=== PATIENT | female | born 1995 | race Caucasian/White ===

== ENCOUNTER → 2020-06-26 | Outpatient (CLI) | payer OTHER ==
--- NOTE | 2020-06-26 15:43 | RADIOLOGY REPORT (SQ) ---
EXAM DESCRIPTION: U/S RETROPERITON (RENAL/AORTA) IMAGES COMPLETED DATE/TIME: 06/26/2020 3:11 pm REASON FOR STUDY: M54.5 LOW BACK PAIN, HEMETURIA M54.5 LOW BACK PAIN COMPARISON: None. TECHNIQUE: Dynamic and static grayscale images acquired of the kidneys and bladder and recorded on P ACS. Additional selected color Doppler and spectral images recorded. LIMITATIONS: None. FINDINGS: RIGHT KIDNEY: Normal size. Normal echogenicity. No solid or suspicious masses. No hydrone phrosis. No calcifications. LEFT KIDNEY: Normal size. Normal echogenicity. No solid or suspicious masses. Mild dilatation of th e renal pelvis within normal limits for 22 weeks gestation. No calcifications. BLADDER: No masses. OTHER FINDINGS: Intrauterine with heart rate 168. IMPRESSION: No stones or hydronephrosis. COMMENT: The degree of renal pelvocalyceal dilation is correlated with the patient's current stage o f . TECHNICAL DOCUMENTATION: JOB ID: [id number] 2010 [employer]- All Rights Reserved Reading location - IP/workstation name: [email or web address]
== END ==
LOC: RAD 14:46
PROVIDERS: ATTEND Advanced Practice Midwife
DX: O99.89 Other specified diseases and conditions complicating pregnancy, childbirth and the puerperium (principal); R31.9 Hematuria, unspecified; M54.5 Low back pain; Z3A.22 22 weeks gestation of pregnancy
CPT/HCPCS: 76770

== ENCOUNTER 2020-10-20 21:59 | Inpatient (IN) | payer OTHER ==
[2020-10-20] MEDS ORDERED: OXYTOCIN 10 UNIT/ML VIAL ONE (22:56)
[2020-10-20] MEDS ORDERED: LIDOCAINE 1% INJ-PF (10 MG/ML) 30 ML SDV ONE (22:56)
[2020-10-20] MEDS ORDERED: OXYTOCIN/0.9 % SODIUM CHLORIDE 30 UNIT/500 ML RTUINJ ONE (22:56)
[2020-10-20] MEDS ORDERED: MISOPROSTOL 0.2 MG TABLET ONE (22:56)
[2020-10-20 23:57] LABS: ABSOLUTE EOSINOPHILS # (AUTO) 0.1 10^3/uL (0.0-0.6); ABSOLUTE LYMPHOCYTES (AUTO) 2.4 10^3/uL (0.5-4.7); ABSOLUTE MONOCYTES (AUTO) 0.8 10^3/uL (0.1-1.4); BASOPHILS % (AUTO) 0.2 % (0-2); EOSINOPHILS % (AUTO) 0.7 % (0-6); HEMATOCRIT 26.9 % (36.0-47.0); HEMOGLOBIN 8.8 g/dL (12.0-15.5); LYMPHOCYTES % (AUTO) 23.8 % (13-45); MEAN CORPUSCULAR HEMOGLOBIN 24.3 pg (27.0-33.4); MEAN CORPUSCULAR HGB CONC 32.5 g/dL (32.0-36.0); MEAN CORPUSCULAR VOLUME 75 fl (80-97); MONOCYTES % (AUTO) 7.3 % (3-13); PLATELET COUNT 125 10^3/uL (150-450); RED BLOOD COUNT 3.61 10^6/uL (3.72-5.28); RED CELL DISTRIBUTION WIDTH 16.4 % (11.5-14.0); TOTAL CELLS COUNTED % (AUTO) 100 %; WHITE BLOOD COUNT 10.3 10^3/uL (4.0-10.5)
[2020-10-20] MEDS ORDERED: RINGERS SOLUTION,LACTATED 500 ML IV ONE (23:59)
[2020-10-20] MEDS ORDERED: RINGERS SOLUTION,LACTATED 1,000 ML IV ONE (23:59)
[2020-10-21 00:03] LABS: APPEARANCE,URINE TURBID; BILIRUBIN,URINE NEGATIVE (NEGATIVE); COLOR,URINE YELLOW; GLUCOSE, URINE NEGATIVE (NEGATIVE); KETONES,URINE NEGATIVE (NEGATIVE); LEUKOCYTE ESTERASE,URINE NEGATIVE (NEGATIVE); NITRITE,URINE NEGATIVE (NEGATIVE); PROTEIN,URINE 100 mg/dL (NEGATIVE); URINE SPECIFIC GRAVITY 1.013; UROBILINOGEN,URINE NEGATIVE mg/dL (<2.0)
[2020-10-21] MEDS ORDERED: EPHEDRINE SULFATE INJ 50 MG/1 ML AMPULE ONE (00:28)
[2020-10-21 00:29] LABS: URINE BARBITURATES SCREEN NEGATIVE; URINE BENZODIAZEPINES SCREEN NEGATIVE; URINE COCAINE SCREEN NEGATIVE; URINE MARIJUANA (THC) SCREEN NEGATIVE; URINE METHADONE SCREEN NEGATIVE; URINE PHENCYCLIDINE SCREEN NEGATIVE
[2020-10-21] MEDS ORDERED: ROPIVACAINE HCL 0.2% INJ/PF (2 MG/ML) 20 ML SDV ONE (00:29)
[2020-10-21] MEDS ORDERED: FENTANYL/BUPIVACAINE/NS/PF 300 MCG/150 ML RTUINJ EPI ONE (00:29)
[2020-10-21] MEDS ORDERED: OXYTOCIN/0.9 % SODIUM CHLORIDE 30 UNIT/500 ML RTUINJ ONE (04:32)
--- NOTE | 2020-10-21 04:41 | Admission Physical ---
Datetime Report Generated by CPN: 10/21/2020 04:41 CURRENT ADMISSION Chief Complaint: Uterine Contractions Indication for Induction: Not Applicable Admit Impression : Term, Intrauterine ; Active Labor; Ruptured Membranes Admit Plan: Admit to Unit; Initiate Labor Protocol ALLERGIES Medication Allergies: No Medication Allergies: No Known Allergies (10/20/2020) Latex: No Latex Allergies Food Allergies: none Environmental Allergies: none OBSTETRICAL HISTORY EDC: 10/25/2020 00:00 : 3 Para: 0 Term: 0 : 0 SAB: 1 IAB: 1 Ectopic: 0 Livin Cesareans: 0 VBACs: 0 Multiple Births: 0 Gestational Diabetes: No Rh Sensitization: No Incompetent Cervix: No MAURO: No Infertility: No ART Treatment: No Uterine Anomaly: No IUGR: No Hx Previous C/S: No Macrosomia: No Hx Loss/Stillborn: No PIH: No Hx : No Placenta Previa/Abruption: No Depression/PP Depression: No PTL/PROM: No Post Hemorrhage: No Current Procedures: Ultrasound Obstetrical History Comments: 02/2013 G3- Current SEE RECORDS Alcohol: No Marijuana : No Cocaine: No Other Illicit Drugs: No Cigarettes: Never Smoker. [id number] MEDICAL HISTORY Diabetes: No Blood Transfusion: No Pulmonary Disease (Asthma, TB): No Breast Disease: No Hypertension: No 4 H Youth Development Specialist Surgery: No Heart Disease: No Hosp/Surgery: Yes Autoimmune Disorder: No Anesthetic Complications: No Kidney Disease: Yes Abnormal Pap Smear: No Neuro/Epilepsy: No Psychiatric Disorders: No Other Medical Diseases: No Hepatitis/Liver Disease: No Significant Family History: No Varicosities/Phlebitis: No Trauma/Violence : No Thyroid Dysfunction: No Medical History Comments: anemia /r/o kidney stones, root canal in 08/2020 INFECTIOUS HISTORY Gonorrhea: No Genital Herpes: No Chlamydia: No Tuberculosis: No Syphilis: No Hepatitis: No HIV/AIDS Exposure: No Rash or Viral Illness: No HPV: No PHYSICAL EXAM General: Normal HEENT: Normal Neurologic: Normal Thyroid: Deferred Heart: Normal Lungs: Normal Breast: Deferred Back: Normal Abdomen: Normal Genitourinary Exam: Normal Extremities: Normal DTRs: Normal Pelvic Type: Adequate Vital Signs: Reviewed VAGINAL EXAM Dilatation: 3 Effacement: 90 Station: -2 Contraction Comments: q 2-3 MEMBRANES Membranes: Ruptured Amniotic Fluid Color: Clear (Annotations: Data stored by [facility] on behalf of user) FETUS A EGA: 39.3 Monitoring: External US FHR- Baseline: 145 Variability: Moderate 6-25bpm Accelerations: 15X15 Decelerations: None FHR Category: Category I Presentation: Vertex Admit Comment: 25yo at 39+3ega presents for SROM clear fluid at 2145. She also is reporting increasingly more frequent contractions. c/b anemia, failed 1 hr GTT (passed 3 hr GTT). Platlets on admission c/w gestational thrombocytopenia. GBS negative. Anemia on admission also 05/22. will likely need iron infusion pp. Admit and anticipate . PLANS FOR LABOR AND DELIVERY Labor and Delivery: None Pain Management: Epidural Feeding Preference: Breast Benefit of Breast Feed Discussed: Yes Circumcision: N/A INFORMED CONSENT Informed Consent Obtained: Vaginal Delivery; Risks, Benefits and Alternatives Discussed Signature: with User ID: [email or web address]
[2020-10-21] MEDS ORDERED: GLYCERIN/WITCH HAZEL LEAF 1 EACH MED..WIPE TP PRN (04:47)
[2020-10-21] MEDS ORDERED: DIPH/PERTUSS(ACELL)/TETANUS VAC/PF 0.5 ML SYR (>=10YO) IM PRN (04:47)
[2020-10-21] MEDS ORDERED: ACETAMINOPHEN 650 MG SUPP.RECT PR PRN (04:47)
[2020-10-21] MEDS ORDERED: ACETAMINOPHEN 325 MG TABLET PO PRN (04:47)
[2020-10-21] MEDS ORDERED: MAGNESIUM HYDROXIDE SUSP 30 ML UDCUP PO PRN (04:47)
[2020-10-21] MEDS ORDERED: BENZOCAINE/MENTHOL AEROSOL SPRAY 56 ML TOP PRN (04:47)
[2020-10-21] MEDS ORDERED: VARICELLA VACC/PF (1350 UNIT/0.5 ML) 0.5 ML VIAL SUBCUT PRN (04:47)
[2020-10-21] MEDS ORDERED: MEASLES,MUMPS&RUBELLA VACC/PF 0.5 ML VIAL SUBCUT PRN (04:47)
[2020-10-21] MEDS ORDERED: ZOLPIDEM TARTRATE 5 MG TABLET PO PRN (04:47)
[2020-10-21] MEDS ORDERED: DIPHENHYDRAMINE HCL 25 MG CAPSULE PO PRN (04:47)
[2020-10-21] MEDS ORDERED: DIBUCAINE 1% OINTMENT 28 GM TP PRN (04:47)
[2020-10-21] MEDS ORDERED: FAMOTIDINE 20 MG TABLET PO PRN (04:47)
[2020-10-21] MEDS ORDERED: OXYTOCIN/0.9 % SODIUM CHLORIDE 30 UNIT/500 ML RTUINJ IV PRN (04:47)
[2020-10-21] MEDS ORDERED: ACETAMINOPHEN WITH CODEINE #3 TABLET PO PRN ×2 (04:47)
[2020-10-21] MEDS ORDERED: PSEUDOEPHEDRINE HCL 30 MG TABLET PO PRN (04:47)
[2020-10-21] MEDS ORDERED: MAG HYDROX/AL HYDROX/SIMETH SUSP 30 ML UDCUP PO PRN (04:47)
[2020-10-21] MEDS ORDERED: MISOPROSTOL 0.1 MG TABLET PR ONE (04:48)
--- NOTE | 2020-10-21 06:01 | Delivery Summary ---
Del Sum A-C Datetime Report Generated by CPN: 10/21/2020 06:00 DELIVERY PERSONNEL DELIVERY PERSONNEL: [id number] Delivery Doctor:: Janae Gonzalez MD DIRECTOR OF BUSINESS SYSTEMS:: Rafat Salter CRNA Labor and Delivery Nurse:: Lacho Wesley RNgolf cart repairer Nurse:: RUFINO Bueno Nursery Nurse:: Telma Herrera RN Keeler Polygraph Operator/VOCATIONAL REHABILITATION SPECIALIST: Mercedes Mccall, ST MATERNAL INFORMATION Delivery Anesthesia: Epidural Medications After Delivery: Pitocin 30 Units in 500ml NS/D5W; Cytotec 1000mcg Per Rectum/Vagina Estimated Blood Loss (ml): 600 Maternal Complications: None Provider Comments: VFI delivered in BRIAN presentation. No nuchal cord. Shoulders and body delivered without difficulty. Infant to maternal abdomen for NRP and skin to skin. Delayed cord clamping performed then cord doubly clamped and cut. Placenta delivered intact spontaneously and then FF at U but only after pitocin and Cytotec. Right labial laceration and 1st degree midline laceration repaired. Good hemostasis. Mother and baby stable upon provider leaving the room. LABOR SUMMARY EDC: 10/25/2020 00:00 No. Babies in Womb: 1 Attempted: No Labor Anesthesia: Epidural LABOR INFORMATION Reason for Induction: Not Applicable Onset of Labor: 10/20/2020 23:29 Complete Dilatation: 10/21/2020 03:55 Oxytocin: N/A Group B Beta Strep: neg Antibiotics # of Doses: 0 Name of Antibiotic Given: n/a Steroids Given: None Reason Steroids Not Administered: Not Applicable MEMBRANES Membranes Rupture Method: Spontaneous Rupture of Membranes: 10/20/2020 21:45 Length of Rupture (hr): 6.43 Amniotic Fluid Color: Clear Amniotic Fluid Amount: Small Amniotic Fluid Odor: Normal STAGES OF LABOR Stage 1 hr: 4 Stage 1 min: 26 Stage 2 hr: 0 Stage 2 min: 16 Stage 3 hr: 0 Stage 3 min: 4 Total Time in Labor hr: 4 Total Time in Labor min: 46 VAGINAL DELIVERY Episiotomy: None Laceration #1: Perineal Laceration Extension #1: First Degree Laceration #2: Vaginal Laceration Extension #2: N/A Laceration Repair: Yes Laceration Repair Note: 1st degree ML perineal laceration and Right labial laceration repaired. Sponge Count Correct: Yes Sharps Count Correct: Yes CSECTION DELIVERY Primary Indication: N/A Secondary Indication: N/A CSection Incidence: N/A Labor: N/A Elective: N/A CSection Incision: N/A BABY A INFORMATION Infant Delivery Date/Time: 10/21/2020 04:11 Method of Delivery: Vaginal Nurse Controlled Delivery: No Born in Route : No : N/A Forceps: N/A Vacuum Extraction: N/A Shoulder Dystocia : No PRESENTATION/POSITION BABY A Presentation: Cephalic Cephalic Presentation: Vertex Vertex Position: Right Occipital Anterior Breech Presentation: N/A PLACENTA INFORMATION BABY A Placenta Delivery Time : 10/21/2020 04:15 Placenta Method of Delivery: Spontaneous Placenta Status: Delivered SCORES BABY A Heart Rate 1 min: >100 bpm Resp Effort 1 min: Good Cry Reflex Irritability 1 min: Cough or Sneeze or Pulls Away Muscle Tone 1 min: Active Motion Color 1 min: Body [place], Extremities Blue Resuscitation Effort 1 min: Tactile Stimulation SCORE 1 MIN: 9 Heart Rate 5 min: >100 bpm Resp Effort 5 min: Good Cry Reflex Irritability 5 min: Cough or Sneeze or Pulls Away Muscle Tone 5 min: Active Motion Color 5 min: Body [place], Extremities Blue SCORE 5 MIN: 9 INFANT INFORMATION BABY A Gestational Age at Delivery: 39.3 Gestational Status: Full Term- 39- 40.6 Weeks Infant Outcome : Liveborn Condition : Stable Sex: Female IDENTIFICATION BABY A Verification Date/Time: 10/21/2020 04:35 ID Band Number: [id number] Mother's Name Verified: Yes Infant RN Verifying Infant: Charlotte Brar, RN/ S. Horacio, RN WEIGHT/LENGTH BABY A Infant Birthweight (gm): 3220 Infant Weight (lb): 7 Weight (oz): 2 Infant Length (in): 21.00 Infant Length (cm): 53.34 CORD INFORMATION BABY A No. Cord Vessels: 3 Nuchal Cord : N/A Cord Blood Taken: Yes-For Eval (Mom's Blood Type - or O+) Infant Suction: None ASSESSMENT BABY A Infant Complications: None Physical Findings at Delivery: Within Normal Limits Infant Respirations: Appears Normal Skin to Skin: Yes Skin to Skin Time (min): 60 Commercial Credit Analyst/ALS Called : No Infant Care By: D Bellavance RN Transferred To: Remains with Mother BABY B INFORMATION : N/A SIGNATURES Signature: with User ID: [email or web address]
--- NOTE | 2020-10-21 06:01 | Birth Certificate Data ---
Cert Data Datetime Report Generated by CPN: 10/21/2020 06:00 CERTIFICATE DATA Delivery Provider: Janae Gonzalez MD (10/20/2020 22:07:RUFINO Bueno) 47a. Care: Yes (10/20/2020 22:07:RUFINO Bueno) 47b. Date of First Visit: 04/12/2020 00:00 (10/20/2020 22:07:RUFINO Bueno) 47c. Date of Last Visit: 10/16/2020 00:00 (10/20/2020 22:07:RUFINO Bueno) 47d. Number of Visits: 13 (10/20/2020 22:07:RUFINO Bueno) 48a. Number of Prev Live Births: 0 (10/20/2020 22:07:RUFINO Bueno) 48b. Now Livin (10/20/2020 22:07:RUFINO Bueno) 48c. Live Births Now : 0 (10/20/2020 22:07:QS system process) 48e. Losses: 2 (10/20/2020 22:07:Lacho Wesley RN) 48f. Date of Last Preg Loss: 01/15/2020 00:00 (10/20/2020 22:07:RUFINO Bueno) RISK FACTORS IN THIS 49a. Diabetes: No (10/20/2020 22:07:Lacho Wesley RN) 49b. Hypertension: No (10/20/2020 22:07:Lacho Wesley RN) 49c. Previous Births: 0 (10/20/2020 22:07:RUFINO Bueno) 49d. Stillborns: No (10/20/2020 22:07:Lacho Wesley RN) 49d. IUGR: No (10/20/2020 22:07:Lacho Wesley RN) 49e. Infertility Treatment: No (10/20/2020 22:07:Lacho Wesley RN) 49f. Previous Cesareans: 0 (10/20/2020 22:07:RUFINO Bueno) Mother's Height 50b. Height Inches: 62 (10/20/2020 22:18:QS system process) Mother's Weight 51a. Pre- Weight (lbs): 154 (10/20/2020 22:07:RUFINO Bueno) 51b. Weight at Delivery (lbs): 172 (10/20/2020 22:18:QS system process) 52. Dt Last Normal Menses Began: 01/19/2020 00:00 (10/20/2020 22:07:RUFINO Bueno) Infections Present/Treated 53a. Gonorrhea: No (10/20/2020 22:07:Lacho eWsley RN) Results this Hospital Visit : Negative (10/20/2020 22:07:RUFINO Bueno) 53b. Syphilis: No (10/20/2020 22:07:Lacho Wesley RN) 53c. Chlamydia: No (10/20/2020 22:07:Lacho Wesley RN) Results this Hospital Visit: Negative (10/20/2020 22:07:RUFINO Bueno) 53d. Hepatitis B: No (10/20/2020 22:07:Lacho Wesley RN) Results this Hospital Visit: Negative (10/20/2020 22:07:RUFINO Bueno) 53e. Hepatitis C: Negative (10/20/2020 22:07:RUFINO Bueno) 53h. Mother Tested for HBsAG: Yes (10/20/2020 22:07:RUFINO Bueno) 53i. Date Tested: 04/12/2020 00:00 (10/20/2020 22:07:RUFINO Bueno) 53j. Test Result: Negative (10/20/2020 22:07:RUFINO Bueno) Obstetric Procedures 54a, b, c. Obstetric Procedures: Ultrasound (10/20/2020 22:07:Lacho Wesley RN) Cigarette Smoking Cigarette Smoking: Never Smoker. [id number] (10/20/2020 22:07:Lacho Wesley RN) 55a. 3 Months Before Preg - Ci (10/20/2020 22:07:Lacho Wesley RN) 55a. Packs: 0 (10/20/2020 22:07:Lacho Wesley RN) 55b. 1st Trimester of Preg- Ci (10/20/2020 22:07:Lacho Wesley RN) 55b. Packs: 0 (10/20/2020 22:07:Lacho Wesley RN) 55c. 2nd Trimester of Preg- Ci (10/20/2020 22:07:Lacho Wesley RN) 55c. Packs: 0 (10/20/2020 22:07:Lacho Wesley RN) 55d. 3rd Trimester of Preg- Ci (10/20/2020 22:07:Lacho Wesley RN) 55d. Packs: 0 (10/20/2020 22:07:Lacho Wesley RN) Onset of Labor 56a. PROM >12 Hrs: 6.43 (10/20/2020 23:15:QS system process) 56b. Precipitous Labor <3 Hrs: 4 (10/20/2020 22:07:QS system process) 56c. Prolonged Labor > 20 Hrs: 4 (10/20/2020 22:07:QS system process) 57a. Induction of Labor: N/A (10/20/2020 22:07:RUFINO Bueno) 57c. Non-Vertex Presentation A: Vertex (10/20/2020 22:07:RUFINO Bueno) 57d. Steroids - Lung Mat: None (10/20/2020 22:07:RUFINO Bueno) 57d. Steroids - Lung Mat: Not Applicable (10/20/2020 22:07:RUFINO Bueno) 57f. Mat [place] or Temp >100.4: 98.6 (10/20/2020 22:07:RUFINO Bueno) 57g. Moderate/Heavy Meconium: Clear (10/20/2020 23:15:Lacho Wesley RN) 57h. Intolerance of Labor: N/A (10/20/2020 22:07:RUFINO Bueno) : N/A (10/20/2020 22:07:Lacho Wesley RN) 57i. Epidural/Spinal Anesthesia: Epidural (10/20/2020 22:07:RUFINO Bueno) Method of Delivery 58a. Forceps - Unsuccessful A: N/A (10/20/2020 22:07:Katia Bellavance, RNC) 58b. Vacuum - Unsuccessful A: N/A (10/20/2020 22:07:Katia Bellavance, RNC) 58c. Presentation at 58c. Presentation at - A : Vertex (10/20/2020 22:07:Katia Bellavance, RNC) 58c. Presentation at - A : N/A (10/20/2020 22:07:Katia Bellavance, RNC) 58c. Presentation at - A : Cephalic (10/20/2020 22:07:Katia Bellavance, RNC) Final Route and Method of Del 58d. Baby A Route/Delivery: Vaginal (10/21/2020 04:11:Katia Bellavance, RNC) 58e. Trial of Labor Attempted: No (10/20/2020 22:07:Katia Bellavance, RNC) 58e. Trial of Labor Attempted A: N/A (10/20/2020 22:07:Katia Bellavance, RNC) 58e. Trial of Labor Attempted B: N/A (10/20/2020 22:07:Katia Bellavance, RNC) Maternal Morbidity 59b. 3rd or 4th Degree Lacs: Perineal (10/20/2020 22:07:Katia Bellavance, RNC) Birthweight Baby A: 3220 (10/20/2020 22:07:Lacho Wesley RN) 60a. Pounds : 7 (10/20/2020 22:07:QS system process) 60b. Ounces: 2 (10/20/2020 22:07:QS system process) 61. GA at Delivery Baby A: 39.3 (10/20/2020 22:07:Katia Bellavance, RNC) : Full Term- 39- 40.6 Weeks (10/20/2020 22:07:QS system process) 62a. 5 Minute Baby A: 9 (10/20/2020 22:07:QS system process)
[2020-10-21] MEDS: IBUPROFEN 800 MG TABLET PO SCH ×3 (06:35→22:27)
[2020-10-21 08:58] LABS: ABSOLUTE LYMPHOCYTES (AUTO) 1.8 10^3/uL (0.5-4.7); ABSOLUTE NEUT (AUTO) 12.5 10^3/uL (1.7-8.2); BASOPHILS % (AUTO) 0.1 % (0-2); HEMATOCRIT 22.9 % (36.0-47.0); LYMPHOCYTES % (AUTO) 12.1 % (13-45); MEAN CORPUSCULAR HEMOGLOBIN 23.2 pg (27.0-33.4); MEAN CORPUSCULAR HGB CONC 31.5 g/dL (32.0-36.0); MEAN CORPUSCULAR VOLUME 74 fl (80-97); MONOCYTES % (AUTO) 6.4 % (3-13); PLATELET COUNT 102 10^3/uL (150-450); RED BLOOD COUNT 3.11 10^6/uL (3.72-5.28); RED CELL DISTRIBUTION WIDTH 16.1 % (11.5-14.0); SEGMENTED NEUTROPHILS % (AUTO) 81.4 % (42-78); TOTAL CELLS COUNTED % (AUTO) 100 %; WHITE BLOOD COUNT 15.3 10^3/uL (4.0-10.5)
[2020-10-21 09:00] LABS: HEMOGLOBIN 7.2 g/dL (12.0-15.5)
[2020-10-21] MEDS: SENNOSIDES/DOCUSATE 8.6-50 MG 1 EACH TABLET PO SCH (09:37)
[2020-10-21] MEDS: FERROUS SULFATE 325 MG TABLET PO SCH ×2 (09:37→17:37)
[2020-10-21] MEDS: DOCUSATE SODIUM 100 MG CAPSULE PO SCH ×2 (09:37→17:37)
[2020-10-21] MEDS ORDERED: IRON SUCROSE COMPLEX INJ/PF 100 MG/5 ML SDV IV ONE (09:52)
--- NOTE | 2020-10-21 09:57 | PDOC PROGRESS REPORT ---
Subjective-OB Progress Note for:: 10/21/20 - Delivery Day. s/p PPH. UOB, denies dizziness, voiding, O+, rubella Immune, Physical Exam (OB) Vital Signs: Temp Pulse Resp BP Pulse Ox 98.3 F 61 16 113/70 100 10/21/20 09:44 10/21/20 08:00 10/21/20 08:00 10/21/20 08:00 10/21/20 08:00 Intake & Output 10/20/20 10/21/20 10/22/20 06:59 06:59 06:59 Weight 77.5 kg - General General Appearance: Appears well, Alert In distress: None - PIH/Pre-Eclampsia Headache: Absent Epigastric Pain: No Visual Changes: No - Maternal Morbidity 59. Maternal Morbidity (serious complications experinced by the mother associated with labor and delivery: None of the above - Lochia Lochia Amount: Small 10-25 ml Lochia Color: Rubra/Red - Abdomen Description: Soft Hernia Present: No Fundal Description: Firm, Midline Fundal Height: u/u - u/2 - Respiratory Respiratory Status: No respiratory distress - Abdominal Distension: No distension - Genitourinary Genitourinary Note: voiding - Extremities Upper extremity: Normal inspection Lower extremities: Normal inspection - Neurological Cognition: Normal Orientation: AAOx4 - Psychological Associated symptoms: Normal affect, Normal mood - Skin Skin Temperature: Warm Skin Moisture: Dry - good skin color Objective-Diagnostic Laboratory: 10/21/20 08:42 10/20/20 10/20/20 10/20/20 22:45 23:49 23:49 WBC 10.3 RBC 3.61 L Hgb 8.8 L Hct 26.9 L MCV 75 L MCH 24.3 L MCHC 32.5 RDW 16.4 H Plt Count 125 L Seg Neutrophils % 68.0 Urine Color YELLOW Urine Appearance TURBID Urine pH 7.0 Ur Specific [place] 1.013 Urine Protein 100 H Urine Glucose (UA) NEGATIVE Urine Ketones NEGATIVE Urine Blood LARGE H Urine Nitrite NEGATIVE Ur Leukocyte Esterase NEGATIVE Blood Type O POSITIVE Antibody Screen NEGATIVE 10/21/20 08:42 WBC 15.3 H RBC 3.11 L Hgb 7.2 L Hct 22.9 L MCV 74 L MCH 23.2 L MCHC 31.5 L RDW 16.1 H Plt Count 102 L Seg Neutrophils % 81.4 H Urine Color Urine Appearance Urine pH Ur Specific [place] Urine Protein Urine Glucose (UA) Urine Ketones Urine Blood Urine Nitrite Ur Leukocyte Esterase Blood Type Antibody Screen Assessment and Plan(PN) - Assessment and Plan (1) Acute blood loss anemia Is this a current diagnosis for this admission?: Yes (2) Gestational thrombocytopenia Qualifiers: Trimester: third trimester Qualified Code(s): O99.113 - Other diseases of the blood and blood-forming organs and certain disorders involving the immune mechanism complicating , third trimester; D69.6 - Thrombocytopenia, unspecified Is this a current diagnosis for this admission?: Yes (3) hemorrhage Qualifiers: hemorrhage type: delayed hemorrhage Qualified Code(s): O72.2 - Delayed and secondary hemorrhage Is this a current diagnosis for this admission?: Yes (4) Spontaneous rupture of amniotic membranes Is this a current diagnosis for this admission?: Yes (5) Vaginal delivery Is this a current diagnosis for this admission?: Yes Plan:: Routine PP orders, will give IV Iron, ambulation encouraged, watch for Orthostatic changes, may need blood tx . - Time Spent with Patient Time with patient: Less than 15 minutes Medications reviewed and adjusted accordingly: Yes - Disposition Anticipated Discharge Disposition: Home, Self Care Anticipated Discharge Timeframe: within 48 hours
[2020-10-21] MEDS: PRENATAL VITAMIN W DHA CAPSULE PO SCH (11:10)
[2020-10-22] MEDS: IBUPROFEN 800 MG TABLET PO SCH ×3 (06:31→21:25)
[2020-10-22] MEDS ORDERED: INFLUENZA QUAD (6MOS+) 2020-21 VAC 0.5 ML SYR IM ONE (08:00)
[2020-10-22 09:13] LABS: HEMATOCRIT 22.9 % (36.0-47.0); MEAN CORPUSCULAR VOLUME 75 fl (80-97); PLATELET COUNT 137 10^3/uL (150-450); RED BLOOD COUNT 3.06 10^6/uL (3.72-5.28); WHITE BLOOD COUNT 11.6 10^3/uL (4.0-10.5)
[2020-10-22 09:17] LABS: HEMOGLOBIN 7.3 g/dL (12.0-15.5)
[2020-10-22] MEDS: DOCUSATE SODIUM 100 MG CAPSULE PO SCH ×2 (09:29→17:34)
[2020-10-22] MEDS: SENNOSIDES/DOCUSATE 8.6-50 MG 1 EACH TABLET PO SCH (09:30)
[2020-10-22] MEDS: FERROUS SULFATE 325 MG TABLET PO SCH ×2 (09:30→17:34)
[2020-10-22] MEDS: PRENATAL VITAMIN W DHA CAPSULE PO SCH (09:31)
--- NOTE | 2020-10-22 11:44 | PDOC PROGRESS REPORT ---
Subjective-OB Progress Note for:: 10/22/20 Subjective: reports bleeding minimal. pain controlled with current meds. denies sx of anemia Physical Exam (OB) Vital Signs: Temp Pulse Resp BP Pulse Ox 97.6 F 57 L 16 105/55 L 99 10/22/20 09:37 10/22/20 07:30 10/22/20 07:30 10/22/20 07:30 10/22/20 07:30 Intake & Output 10/21/20 10/22/20 10/23/20 06:59 06:59 06:59 Intake Total 780 400 Output Total 600 Balance 180 400 Weight 77.5 kg - Maternal Morbidity 59. Maternal Morbidity (serious complications experinced by the mother associated with labor and delivery: None of the above - Abdomen Description: Soft Hernia Present: No Fundal Description: Firm, Midline Fundal Height: u/u - u/2 - Abdominal Distension: No distension Tenderness: Nontender - Extremities Lower extremities: Aman's sign - neg Calf: Normal, Nontender Objective-Diagnostic Laboratory: 10/22/20 08:53 10/22/20 08:53 WBC 11.6 H RBC 3.06 L Hgb 7.3 L Hct 22.9 L MCV 75 L MCH 24.0 L MCHC 32.0 RDW 16.0 H Plt Count 137 L Assessment and Plan(PN) - Time Spent with Patient Time with patient: Less than 15 minutes Medications reviewed and adjusted accordingly: Yes - Disposition Anticipated Discharge Disposition: Home, Self Care Anticipated Discharge Timeframe: within 24 hours
[2020-10-23] MEDS: IBUPROFEN 800 MG TABLET PO SCH (05:43)
[2020-10-23 07:43] VITALS: BP 114/70
--- OUTSIDE RECORDS SUMMARY | 2020-10-23 09:15 | XMS REPORT ---
:1995 Demographics Address [address] [place] [address] Email Address Preferred Language [id number] Marital Status Unknown Voodoo Affiliation Unknown Race Unknown Additional Race(s) Unavailable Unavailable [id number] Ethnic Group Unknown Author Organization [facility] Address [facility] [address] [place] [address] Care Team Providers Name Role Phone Alejandrina Smith Attending Clinician Unavailable Allergies, Adverse Reactions, Alerts This patient has no known allergies or adverse reactions. Medications This patient has no known medications. Problems This patient has no known problems. Procedures Procedure Date / Time Performed Performing Clinician Devic e OFFICE/OUTPATIENT VISIT [facility] 2017-07-06 14:30:00 Results Test Description Test Time Test Comments Text Results Atomic Results Result Comments SARS-CoV-2 RNA Resp Ql ADILSON+probe 2020-08-26 00:00:00 Test Item Value Reference Range Comments SARS-CoV-2 RNA Resp Ql ADILSON+probe [facility]: (test code = 51201-8) [id number] 00:01:00 Test Item Value Reference Range Comments TSH (test code = 761761) 0.92 mIU/L CBC NO Diff (Complete Blood Count)2017-07-06 00:01:00 Test Item Value Reference Range Comments MCV (test code = 517741) 83.6 fL 80.0-100.0 RBC (test code = 380991) 4.39 MIL/uL 3.80-5.10 MPV (test code = 727349) 9.6 fL 7.5-12.5 WBC (test code = 505727) 6.7 K/uL 3.8-10.8 Hemoglobin (test code = 205008) 11.6 g/dL 11.7-15.5 Hematocrit (test code = 744976) 36.7 % 35.0-45.0 MCH (test code = 916420) 26.4 pg 27.0-33.0 Platelet Count (test code = 622725) 362 K/uL 140-400 RDW (test code = 096897) 14.3 % 11.0-15.0 MCHC (test code = 200560) 31.6 g/dL 32.0-36.0 CMP with Estimated [id number] 00:01:00 Test Item Value Reference Range Comments Potassium (test code = 898158) 4.6 mmol/L 3.5-5.3 Bilirubin, Total (test code = 163729) 0.8 mg/dL 0.2-1.2 Est GFR, (test code = 387110) >89 mL/min > =60 Calcium (test code = 434501) 8.7 mg/dL 8.6-10.2 Albumin (test code = 077556) 4.0 g/dL 3.6-5.1 Glucose (test code = 062035) 66 mg/dL 65-99 Est GFR, NonAfrican Cypriot (test code = 410922) >89 mL/min >=60 Alkaline Phosphatase (test code = 917499) 93 U/L 33-115 Chloride (test code = 084332) 105 mmol/L 98-110 CO2 (test code = 626819) 25 mmol/L 20-31 AST/SGOT (test code = 501824) 22 U/L 10-30 BUN (test code = 910229) 10 mg/dL 7-25 Sodium (test code = 722912) 141 mmol/L 135-146 Total Protein (test code = 676948) 6.7 g/dL 6.1-8.1 ALT/SGPT (test code = 543514) 9 U/L 6-29 Creatinine (test code = 967136) 0.71 mg/dL 0.50-1.10 Hemoglobin A1c with [id number] 00:01:00 Test Item Value Reference Range Comments eAG (calc) (test code = 533349) 100 mg/dL Hemoglobin A1C (test code = 094990) 5.1 % <5.7 CHLAMYDIA/GC AMPLIFICATION Test Item Value Reference Range Comments CHLAMYDIA TRACHOMATIS, ADILSON (test code = 26047-4) N NEGATIVE NEGATIVE NEISSERIA GONORRHOEAE, ADILSON (test code = 88085-3) N NEGATIVE NEGATIVE STREP GP B ADILSON Test Item Value Reference Range Comments STREP GP B ADILSON (test code = 43338-3) N NEGATIVE NEGATIVE HIV AG/AB WITH REFLEX Test Item Value Reference Range Comments HIV SCREEN 4TH GENERATION WRFX (test code = NR NON REACTIVE NON REACTIVE 10083-0) RPR Test Item Value Reference Range Comments RPR (test code = 45642-6) NR NON REACTIVE NON RE ACTIVE Assessments Condition Name Status Diagnosis Date Treating Clinici an Body mass index (BMI) 28.0-28.9, adult Active Polyphagia Active Abnormal weight gain Active Family history of diabetes mellitus Active Encounters Start End Encounter Admission Attending Care Care Encounter Date/Time Date/Time Type Type Clinicians Facility Department ID 2020-08-23 2020-08-23 Outpatient [facility] [id number] 28 11:44:42 11:54:42 2017-07-06 2017[facility]07-[id number] 14:30:00 14:30:00 Alejandrina Children [id number] and [id number] [facility] [place] Plan of Treatment Planned Activity Planned Date Details Comments Future Scheduled Test [code = ] Future Scheduled Test [code = ] Social History This patient has no known social history. Vital Signs This patient has no known vital signs. Hospital Discharge Instructions Patient Instructions Zheng Rich, [facility] - 08/23/2020 11:10 AM EST Covid19 Fact Sheet You are being given this Fact Sheet because your sample(s) are being tested for the virus that causes Coronavirus Disease 2019 (COVID-19). This Fact Sheet contains information to help you understand the risks and benefits of using this test for the diagnosisof COVID-19. If you have questions or would like to discuss the information provided after you read this Fact Sheet, please talk to your healthcare provider. For the most up to date information on COVID-19 please visit the CDC Coronavirus Disease 2019 (COVID-19) webpage: https://www.cdc.gov/coronavirus/2019-ncov/index.html IMPORTANT INFORMATION REGARDING COVID19 TEST RESULTS: - Patients will not receive a telephone call withtheir COVID19 test results! - All COVID19 test results will be delivered through [facility] [employer] online patient portal - Information regarding [facility] can be found within this Fact Sheet Patient Consent: I verify that I have received the following information: information specific to Covid-19 testing, the available testing including risks associated with the proceduresof those collected in the clinic, the meaning of positive or negative lab result(s), and the available treatment(s). I have been provided an opportunity to ask questions and have received answers as needed. I have been informed that testing is voluntary, that I have the right to decline any tests and that any positive test results will be reported to the [facility] where required by applicable law. Know about COVID-19 COVID-19 is caused by the SARS-CoV-2 virus. COVID-19 can cause mild to sever respiratory illness, was first identified in [facility], and has now spread globally, including the [place]. There is limited information available about the spectrum of illness associated with COVID-19 but it likely spreads to others when a person shows signs or symptoms of being sick (e.g., cough, shortness of breath, or difficult breathing, fever, chills, repeated shaking with chills, muscle pain, headache, sore throat, new loss of taste or smell, other less common symptoms have been reported, including gastrointestinal symptoms like nausea, vomiting, or diarrhea.) What should I do while I wait for my test results? While you are awaiting your COVID-19 test results, you should isolate yourself to avoid spreading the virus to others. CDC guidance on what to do while awaiting your t est results can be found at: https://www.cdc.gov/coronavirus/2019-ncov/jn-bwq-hbu-sick/quarantine-iso lation.html Wash your hands often with soap and water for at least 20 seconds. Clean your hands with an alcohol-based hand forestry foreman that contains at least 60% alcohol if soap and water are not available. Avoid close contact with people who are sick Avoid touching your eyes, nose and mouth with unwashed hands. Clean all high-touch surfaces every day. High touch surfaces include counters, tabletops, doorknobs, bathroom fixtures, toilets, phones, keyboards, tablets, and beside tables. Cover coughs and sneezes If available, wear a face covering What does it mean if I have a positive test result? If you have a positive test result, it is very likely that you have COVID-19. Therefore, it is also likely that you may be placed in isolation to avoid spreading the virus to others. There is a very small chance that this test can give a positive result that is wrong (a false positive result). Most cases can be cared for at home. Stay home and limit contact with others until: You hav e been fever-free for at least 24 hours without using medicine that reduces fever AND your symptoms have improved AND at least 10 days have passed since your symptoms first appeared. Do not go to the hospital to seek care unless you have a medical emergency Do not go to work. Notify your employer of your positive test result Contact your primary care provider and inform them of your [id number] testing result Continue to monitor your symptoms at home and seek medical attention if symptoms worsen as described on the opposite side of this document. If you test positive for COVID-19 but never had and never develop symptoms, you may discontinue isolation and other precautions 10 days a fter the date of your first positive test for COVID-19. What does it mean if I have a negative test result? A negative test result does not completely rule out being infected with COVID-19. If you testnegative for COVID-19, this means the virus was not detected at the time your specimen was collected. It is still possible that you were very early in your infection at the time of your specimen collection and that you could test positive later. Also, you could be exposed later and still develop the illness. For all these reasons, it is important to follow CDC guidance at (https://www.cdc.gov/coronavi karla/2019-ncov/xzslkxn-repaash-hpdg/prevention.html), including but not limited to frequent hand washing, social distancing, wearing a face covering, covering coughs and sneezes, monitoring symptoms, and cleaning and disinfectant of frequently touched surfaces -- even after a negative test result. Is there a possibility that the test results could be invalid? In the instance that your specimen is not able to be processed by the lab, a [facility] provider will contact you via telephone to discuss next steps and specimen re-processing. How should I monitor my symptoms? Note the day any new symptoms begin Check your own temperature two times a day Keep a daily record of fever, cough and additional respiratory symptoms Seek further evaluation from a healthcare provider via telemedicine, or thru a scheduled in person visit if applicable and your symptoms get worse. Call ahead before visiting your healthcare provider and tell them you have been tested for COVID-19. Even if you dont experience symptoms you might make others sick What should I do if symptoms get worse? Seekmedical attention immediately if you develop any of the following emergency warning signs for COVID-19 or other medical emergencies: Difficulty breathing Bluish lips or face Constant pain or pressure in your chest Constant dizziness or lightheadedness Acting confused Difficulty waking up Slurred speech (new or worsening) New seizure or seizures that wont stop This list is not all-inclusive. Please consult a healthcare provider for any other symptoms that are severe or concerning. What are the known and potential risks and benefits of the test? Potential risks include: Possible discomfort or other complications that can happen during sample collection. (I.e. bloody nose during specimen collection) It is possible that this test can give a positive result that is wrong (a false positive result). It is possible for this test to give a negative result that is incorrect (false negative). Potential benefits include: The results, along with other information, can help your healthcare provider make informed recommendations about your care. The results of this test may help limit the spread of COVID- 19 to your family and others in your community. When will I receive my test results? You will not receive a phone call with results, rather the results will be in [facility], [employer] online patient portal, as soon as they are provided back to [facility]; generally 5-7 days*, below are instructions for how to set-up [facility]. If you have questions about your results contact your PCP for further guidance. * Due to the increase in specimen collections and pro cessing, result delivery may slightly vary based on collection site and the outside lab How do I access Results Through [facility]? [facility] allows you to view your test results, your medical records and more. You will receive a [facility] activation email at the conclusion of your COVID19 swab visit. Upon receipt, you will need to create a user name and password by inputting basic patient demographics including date of and a response to a security question. [facility] accounts are for patients aged 18+(or in [place], 19+) only. Minors will receive results via the phone number provided at the time ofappointment registration. If you have any questions and/or concerns regarding the MyChart process, you may email [email or web address] Do you want to share your feedback about your COVID19 visit?We are glad you chose to get your test at [facility] today, and hope you feel better soon. If you are feeling well enough, we would appreciate you taking a few moments to visit the website below and take a short survey to help us understand how we can do better: to-[email or web address].[employer] Your safety is always our first priority at [facility], and thats why you can be seen in person, or from home with telehealth visit options. From earaches to allergies, we provide over 125 services, and with our in-clinic and telehealth options, we have more ways to help than ever. Schedule an appointment at [facility] or in the [facility] pharmacy abril. Our Notice of Privacy Practices can be found here: [email or web address] If you have any questions, please contact us at . Where can I go for updates and more information? The most up-to-date information on is available at the CDC General webpage: https://www.cdc.gov/COVID19. In addition, please also contact your healthcare provider with any questions/concerns. CDC Information Updated:February 07, 2020 Seek immediate emergency medical attention if you experience severe or worsening abdominal pain, difficulty swallowing, stiff neck, shortness of breath, coughing or vomiting up blood, chest pain, increased fever, unexplained weight loss, or blood in stool. Follow up with you primary care provider for questions or any new symptoms documented in this encounter
[2020-10-23] MEDS: FERROUS SULFATE 325 MG TABLET PO SCH (09:54)
[2020-10-23] MEDS: PRENATAL VITAMIN W DHA CAPSULE PO SCH (09:54)
[2020-10-23] MEDS: DOCUSATE SODIUM 100 MG CAPSULE PO SCH (09:54)
[2020-10-23] MEDS: SENNOSIDES/DOCUSATE 8.6-50 MG 1 EACH TABLET PO SCH (09:55)
--- NOTE | 2020-10-23 13:17 | PDOC DISCHARGE SUMMARY ---
Impression - Admit/DC Date/PCP Admission Date/Primary Care Provider: 10/20/20 22:52 Discharge Date: 10/23/20 - Discharge Diagnosis (1) Acute blood loss anemia Is this a current diagnosis for this admission?: Yes (2) Gestational thrombocytopenia Is this a current diagnosis for this admission?: Yes (3) hemorrhage Is this a current diagnosis for this admission?: Yes (4) Spontaneous rupture of amniotic membranes Is this a current diagnosis for this admission?: Yes (5) Vaginal delivery Is this a current diagnosis for this admission?: Yes - Assessment Summary: 25yo s/p ppd2. Voiding and ambulating without difficulty, reports pain well controlled with medication. Denies any concerns. stable and ready for discharge. Understands warning s/s. asked questions and verbalized understanding - Additional Information Resuscitation Status: Full Code Discharge Diet: As Tolerated, Regular Discharge Activity: Activity As Tolerated, Balance Activity w/Rest, No Lifting Over 10 Pounds, Pelvic Rest, No tub bath, Walk Frequently Prescriptions: Ibuprofen [Motrin 800 mg Tablet] 800 mg PO Q8HP PRN #20 tablet PRN Reason: Abdominal Cramping Docusate Sodium [Colace 100 mg Capsule] 100 mg PO BID #60 capsule Ferrous Sulfate [Feosol 325 mg Tablet] 325 mg PO BID #60 tablet Home Medications: Pediatric Multivitamin No.49 [Flintstones Gummies] 1 tab PO DAILY 10/20/20 Docusate Sodium [Colace 100 mg Capsule] 100 mg PO BID #60 capsule 10/23/20 Ferrous Sulfate [Feosol 325 mg Tablet] 325 mg PO BID #60 tablet 10/23/20 Ibuprofen [Motrin 800 mg Tablet] 800 mg PO Q8HP PRN #20 tablet 10/23/20 Hospital Course 59. Maternal Morbidity (serious complications experinced by the mother associated with labor and delivery: None of the above Results Laboratory Results: WBC 11.6 10^3/uL (4.0-10.5) H 10/22/20 08:53 RBC 3.06 10^6/uL (3.72-5.28) L 10/22/20 08:53 Hgb 7.3 g/dL (12.0-15.5) L 10/22/20 08:53 Hct 22.9 % (36.0-47.0) L 10/22/20 08:53 MCV 75 fl (80-97) L 10/22/20 08:53 MCH 24.0 pg (27.0-33.4) L 10/22/20 08:53 MCHC 32.0 g/dL (32.0-36.0) 10/22/20 08:53 RDW 16.0 % (11.5-14.0) H 10/22/20 08:53 Plt Count 137 10^3/uL (150-450) L 10/22/20 08:53 Lymph % (Auto) 12.1 % (13-45) L 10/21/20 08:42 [place] % (Auto) 6.4 % (3-13) 10/21/20 08:42 Eos % (Auto) 0.0 % (0-6) 10/21/20 08:42 Baso % (Auto) 0.1 % (0-2) 10/21/20 08:42 Absolute Neuts (auto) 12.5 10^3/uL (1.7-8.2) H 10/21/20 08:42 Absolute Lymphs (auto) 1.8 10^3/uL (0.5-4.7) 10/21/20 08:42 Absolute Monos (auto) 1.0 10^3/uL (0.1-1.4) 10/21/20 08:42 Absolute Eos (auto) 0.0 10^3/uL (0.0-0.6) 10/21/20 08:42 Absolute Basos (auto) 0.0 10^3/uL (0.0-0.2) 10/21/20 08:42 Seg Neutrophils % 81.4 % (42-78) H 10/21/20 08:42 Urine Color YELLOW 10/20/20 22:45 Urine Appearance TURBID 10/20/20 22:45 Urine pH 7.0 (5.0-9.0) 10/20/20 22:45 Ur Specific [place] 1.013 10/20/20 22:45 Urine Protein 100 mg/dL (NEGATIVE) H 10/20/20 22:45 Urine Glucose (UA) NEGATIVE mg/dL (NEGATIVE) 10/20/20 22:45 Urine Ketones NEGATIVE mg/dL (NEGATIVE) 10/20/20 22:45 Urine Blood LARGE (NEGATIVE) H 10/20/20 22:45 Urine Nitrite NEGATIVE (NEGATIVE) 10/20/20 22:45 Urine Bilirubin NEGATIVE (NEGATIVE) 10/20/20 22:45 Urine Urobilinogen NEGATIVE mg/dL (<2.0) 10/20/20 22:45 Ur Leukocyte Esterase NEGATIVE (NEGATIVE) 10/20/20 22:45 Urine Ascorbic Acid NEGATIVE (NEGATIVE) 10/20/20 22:45 Membranes Rupture POSITIVE (NEGATIVE) H 10/20/20 22:25 Urine Opiates Screen NEGATIVE 10/20/20 22:45 Urine Methadone Screen NEGATIVE 10/20/20 22:45 Ur Barbiturates Screen NEGATIVE 10/20/20 22:45 Ur Phencyclidine Scrn NEGATIVE 10/20/20 22:45 Ur Amphetamines Screen 10/20/20 22:45 U Benzodiazepines Scrn NEGATIVE 10/20/20 22:45 Urine Cocaine Screen NEGATIVE 10/20/20 22:45 U Marijuana (THC) Screen NEGATIVE 10/20/20 22:45 RPR NONREACTIVE (NONREACTIVE) 10/20/20 23:49 Blood Type O POSITIVE 10/20/20 23:49 Antibody Screen NEGATIVE 10/20/20 23:49
== END 2020-10-23 14:46 | disposition home or self-care (01) | DRG 806 ==
LOC: LC 21:59 → LR 22:52 → UNDODISIN 10-21 04:00 → 2S 10-21 06:27
PROVIDERS: ADMIT Student in an Organized Health Care Education/Training Program; ATTEND Student in an Organized Health Care Education/Training Program
PROC: 10E0XZZ Delivery of Products of Conception, External Approach (ICD-10-PCS; principal; 2020-10-21)
PROC: 0HQ9XZZ Repair Perineum Skin, External Approach (ICD-10-PCS; 2020-10-21)
PROC: 0UQMXZZ Repair Vulva, External Approach (ICD-10-PCS; 2020-10-21)
PROC: 3E0234Z Introduction of Serum, Toxoid and Vaccine into Muscle, Percutaneous Approach (ICD-10-PCS; 2020-10-22)
DX: O99.12 Other diseases of the blood and blood-forming organs and certain disorders involving the immune mechanism complicating childbirth (principal); D62 Acute posthemorrhagic anemia; Z37.0 Single live birth; O99.02 Anemia complicating childbirth; D69.59 Other secondary thrombocytopenia; O70.0 First degree perineal laceration during delivery; O72.2 Delayed and secondary postpartum hemorrhage; Z3A.39 39 weeks gestation of pregnancy; Z23 Encounter for immunization
CPT/HCPCS: 1967; 36415; 80307; 81005; 84112; 85025; 85027; 86592; 86850; 86900; 86901; 90471; 90686; G0008; G0480; J1756; J2590; J2795; J3010; J3490